=== PATIENT | female | born 1970 | race Caucasian/White ===

== ENCOUNTER 2023-11-28 16:11 | Outpatient (OUT) | payer OTHER, SELFPAY ==
--- NOTE | 2023-11-28 16:13 | MM_ITS ---
Patient Name: BERTHA BACH MR#: [id number] : 1970 Exam Date: 11/28/2023 Ordering Doctor: Non-Staff Physician RADIOLOGY REPORT PROCEDURE: MM TOMOSYNTHESIS SCREENING BI COMPARISON: MG MAMM SCREEN 3D CARLA CAD, 11/21/2021. MG MAMM SCREEN 3D CARLA CAD, 11/22/2022. INDICATIONS: screening Calculator Name NCI Breast Cancer Risk Assessment Tool 5 Year Breast Cancer Risk 1.50% Lifetime Breast Cancer Risk 10.20% Personal Breast Cancer No Personal Ovarian Cancer No Treatments None Family Cancers Brother with blood cancer at age 45; Mother with conner cell cancer at age ~45. LOCATION: [facility] BREAST COMPOSITION: Extremely dense, which lowers the sensitivity of mammography. FINDINGS: DIAGNOSTIC CATEGORY 1--NEGATIVE. NO CHANGE FROM COMPARISON ASSESSMENT. Scattered benign-appearing calcifications are present. Scattered benign-appearing lymph nodes are present. RIGHT BREAST: No significant suspicious finding. LEFT BREAST: No significant suspicious finding. RECOMMENDATIONS: ROUTINE MAMMOGRAM AND CLINICAL EVALUATION IN 12 MONTHS. PLEASE NOTE: A NORMAL MAMMOGRAM DOES NOT EXCLUDE THE POSSIBILITY OF BREAST CANCER. A CLINICALLY SUSPICIOUS PALPABLE LUMP SHOULD BE BIOPSIED. Dictated by: Clif Kim MD on 11/29/2023 at 08:02 Approved by: Clif Kim MD on 11/29/2023 at 08:05
== END 2023-11-28 16:12 | disposition home or self-care (01) ==
LOC: MAMMO 16:12
PROVIDERS: PCP Family Medicine
DX: Z12.31 Encounter for screening mammogram for malignant neoplasm of breast (principal); Z80.8 Family history of malignant neoplasm of other organs or systems
CPT/HCPCS: 77063; 77067

== ENCOUNTER 2024-03-26 11:13 | Outpatient (OUT) | payer OTHER, SELFPAY ==
--- OUTSIDE RECORDS SUMMARY | 2024-03-26 11:34 | XMS_ITS | CCD ---
Author Organization [facility] Care Team Providers Care Applications Engineering Manager Name Role Phone Unavailable Primary Care Provider Jose HER, DR SAUNRDA Garcia Primary Care Unavailable LUKE, DR KENNETH Lucas Consulting Unavailable HER, DR SAUNDRA Garcia Admitting Unavailable HER, DR SAUNDRA Garcia Attending Unavailable HER, DR SAUNDRA Garcia Consulting Unavailable [facility] NEELY Attending Unavailable [facility] NEELY Consulting Unavailable [facility] NEELY Admitting Unavailable HER, DR SAUNDRA Garcia Primary Care [facility] KEN[facility] Lucas Consulting Unavailable [facility] NEELY Admitting Unavailable [facility] DR NEELY Attending [facility], DR MARYURI Burris Consulting Unavailable HER, DR SAUNDRA Garcia Primary Care Unavailable [facility] DR NEELY Consulting Unavailable Blanka De La Torre Unavailable Saundra Her Unavailable Anabel Long Unavailable Nathalie Escobar Unavailable Medications Current Medications Medication Drug Class(es) Dates Sig (Normalized) Sig (Original) amoxicillin 875 mg / clavulanate 125 mg oral tablet (5 sources) Penicillin-class Antibacterial Start: 12-02-2022 take 1 tablet by mouth every twelve hours Amoxicillin-Pot Clavulanate 875-125 MG 1 tablet Orally every 12 hrs for 10 day(s) Aug, Active Multivitamin preparation (4 sources) Multivitamin Active pantoprazole (5 sources) Proton Pump Inhibitor Pantoprazole Sodium 40 mg TAKE 1 TABLET DAILY Not-Taking/PRN Protonix Active Completed/Discontinued Medications Medication Drug Class(es) Dates Sig (Normalized) Sig (Original) Estroven (4 sources) Estroven Not-Corwin ing/PRN Estroven Active fluticasone propionate 0.05 mg/actuat metered dose nasal spray (4 sources) Corticosteroid Start: 11-28-2022 take 1 spray(s) nasal route once daily as needed Fluticasone Propionate 50 MCG/ACT 1 spray in each nostril Nasally Once a day for 21 days Nov, Not-Taking/PRN Start: 11-28-2022 take 1 spray(s) nasa l route once daily Fluticasone Propionate 50 MCG/ACT 1 spray in each nostril Nasally Once a day for 21 days Nov, Active levothyroxine sodium 0.05 mg oral tablet (4 sources) l-Thyroxine Levothyroxine So dium 50 MCG TAKE 1 TABLET DAILY Not-Taking/PRN Synthroid Active methylPREDNISolone 4 mg oral tablet (4 sources) Corticosteroid Start: 11-28-2022 methylPREDNISolone 4 MG as directed Orally Once a day for 6 days Nov, Not-Taking/PRN predniSONE 20 mg oral tablet (4 sources) Start: 12-02-2022 take 1 tablet by mouth every twelve hours predniSONE 20 MG 1 tablet Orally 2 times a day for 5 day(s) Nov, Not-Taking/PRN Probiotic Pearls (4 sources) Probiotic Pearls Orally Not-Taking/PRN Probiotic Pearls Orally Active Problems Problem Classification Problem Date Documented Date Episodic/Chronic Esophageal disorders (1 source) Gastroesophageal reflux disease without esophagitis; Translations: [Gastro-esophageal reflux disease without esophagitis] Chronic Menopausal disorders (4 sources) Postmenopausal bleeding; Translations: [POSTMENOPAUSAL BLEEDING] Onset: 04-09-2022 Chronic Other endocrine disorders (4 sources) Polycystic ovaries; Translations: [Polycystic ovarian syndrome] Chronic Other screening for suspected conditions (not mental disorders or infectious disease) (4 sources) Encounter for screening mammogram for malignant neoplasm of breast; Translations: [ENC SCR MAMMO MALIG NEOPLASM BREAST] Onset: 11-22-2022 Episodic Other upper respiratory disease (4 sources) Sinusitis; Translations: [Allergic rhinitis, unspecified] Chronic Other upper respiratory disease (1 source) Allergic rhinitis, unspecified Chronic Other upper respiratory infections (2 sources) Acute sinusitis, unspecified; Translations: [Acute pansinusitis, unspecified] Episodic Thyroid disorders (5 sources) Hypothyroidism; Translations: [Hypothyroidism, unspecified] Chronic Results Test Name Value Interpretation Reference Range Facil ity MG MAMM SCREEN 3D CARLA CADon 11-22-2022 MG MAMM SCREEN 3D CARLA CAD Patient: BERTHA BACH Exam Date: 11/22/2022 : 1970 Gender:F Ordering : DR SAUNDRA HER M.D. Admission #: [id number] Family : Order #: [id number] CLICK HERE TO VIEW EXAM RADIOLOGY REPORT PROCEDURE: MAMMOGRAM SCREENING 3D BILATERAL CAD COMPARISON: MG MAMM SCREEN CARLA W CAD, 11/17/2020. MG MAMM SCREEN CARLA W CAD, 11/12/2019. MG MAMM SCREEN CARLA W CAD, 03/25/2018. MG MAMM SCREEN 3D CARLA CAD, 11/21/2021. INDICATIONS: Screening for malignant neoplasm of breast Calculator Name NCI Breast Cancer Risk Assessment Tool 5 Year Breast Cancer Risk Not Reported. Lifetime Breast Cancer Risk Not Reported. Personal Breast Cancer No Personal Ovarian Cancer No Treatments None Family Cancers None LOCATION: [facility] BREAST COMPOSITION: Extremely dense, which lowers the sensitivity of mammography. FINDINGS: DIAGNOSTIC CATEGORY 1--NEGATIVE. RIGHT BREAST: No significant suspicious finding. No significant change has occurred. LEFT BREAST: No significant suspicious finding. No significant change has occurred. RECOMMENDATIONS: ROUTINE MAMMOGRAM AND CLINICAL EVALUATION IN 12 MONTHS. PLEASE NOTE: A NORMAL MAMMOGRAM DOES NOT EXCLUDE THE POSSIBILITY OF BREAST CANCER. A CLINICALLY SUSPICIOUS PALPABLE LUMP SHOULD BE BIOPSIED. Dictated by: Kenneth Marin M.D. on 11/23/2022 at 09:34 Approved by: Kenneth Marin M.D. on 11/23/2022 at 10:21 Normal [facility] CT ABD/PELV WO W CONon 04-09 CT ABD/PELV WO W CON EXAMINATION: CT ABD/PELV WO W CON, 04/09/2022 7:00 AM EDT HISTORY: Postmenopausal bleeding comment uterine mass, thickened endometrium COMPARISON: Ultrasound 03/21/2022 TECHNIQUE: CT scan of the abdomen and pelvis was performed without and with IV contrast. CT dose reduction technique was used, including Automated Exposure Control. FINDINGS: LUNG BASES: No visible pulmonary or pleural disease. LIVER: Innumerable hypodensities, simple cysts are favored BILIARY: Extensive costal cholelithiasis without CT evidence of acute cholecystitis PANCREAS: No lesion, fluid collection, ductal dilatation, or atrophy. SPLEEN: Scattered hypodensities nonspecific ADRENALS: Normal KIDNEYS: Dilated left renal pelvis, possibly representing parapelvic cysts. No focal obstruction observed BOWEL/MESENTERY: Minimal colonic diverticulosis. Nonobstructive bowel gas pattern. Normal appendix AORTA/VASCULAR: No aneurysm or dissection. RETROPERITONEUM: No mass or adenopathy. LYMPH NODES: No adenopathy. URINARY BLADDER: No visible focal wall thickening, lesion, or calculus. PELVIC ORGANS: Prominent appearance of the endometrium. Prominent cervix. Areas of fluid density, nabothian cysts favored. Focal area of hypodensity measuring 2.3 x 1.9 cm and the left cervix, axial image 119. r adnexal cysts, the largest measuring 2.6 cm on the left ABDOMINAL WALL: No mass or hernia. BONES: No bony lesion or fracture. OTHER: Negative. IMPRESSION: 2.3 cm left cervical hypodense mass. Direct visualization is recommended to exclude malignancy Prominent endometrium for a postmenopausal patient 2.5 cm left adnexal cyst Dilated left renal pelvis, pelviectasis versus parapelvic cysts Electronically authenticated by: MARYURI BAH Date: 2022-04-09 09:[address] [facility] US PELVIS AND TRANSVAGon US PELVIS AND TRANSVAG EXAMINATION: US PELVIS AND TRANSVAG HISTORY: Postmenopausal bleeding COMPARISON: No relevant comparison available. TECHNIQUE: Transabdominal and transvaginal sonographic examination. FINDINGS: UTERUS: Hypoechoic slightly heterogeneous mass versus hemorrhagic cyst adjacent to or possibly within the left lateral wall of the cervix, 2.6 x 2.3 x 1.6 cm. Several nabothian cysts within engle of cervix, largest is 2.1 cm. Normal size and appearance of uterine body. Uterus size: 9.2 x 5.4 x 5.1 cm ENDOMETRIUM: 3 mm cyst within endometrium, otherwise homogeneous appearance. Endometrial thickness: 11 mm RIGHT OVARY: Contains several cysts versus follicles, largest is 2.3 cm. Duplex Doppler demonstrates normal waveform and flow; resistive index 0.5. Ovary size: 4.4 x 2.6 x 2.6 cm LEFT OVARY: Contains several cysts versus follicles, largest is 2.6 cm. Duplex Doppler demonstrates normal waveform and flow; resistive index 0.6. Ovary size: 4.0 x 3.7 x 2.7 cm CUL-DE-SAC: Unremarkable. No significant free fluid. BLADDER: Unremarkable. OTHER: None. IMPRESSION: 1. Nonspecific hypoechoic 2.6 cm mass which appears to lie adjacent to the left side of the cervix, uncertain etiology. Consider CT imaging of the abdomen and pelvis with IV and oral contrast for further evaluation. 2. Multiple nabothian cysts within the engle of the cervix, which could also contribute to patient's symptoms. 3. Thickened endometrium for a postmenopausal patient. No appreciable mass or significant polyp. 4. Multiple bilateral ovarian cysts; not overtly suspicious. Consider follow-up imaging in 6 weeks. Electronically authenticated by: KENNETH MARIN Date: 2022-03-21 16:[address] [facility] Otheron 08-22-1999 CONVERTED ELECTRONIC SIGNATURE SAULO CARRERO ONLINE COMMUNICATIONS MANAGER (Electronic signature on file) Final Signed Out: 08/22/1999 12:16 [facility] CONVERTED FINAL DIAGNOSIS SPECIMEN ADEQUACY SATISFACTORY FOR EVALUATION GENERAL CATEGORIZATION BENIGN CELLULAR CHANGES DESCRIPTIVE DIAGNOSIS MARKED ACUTE INFLAMMATION. HORMONAL EVALUATION HORMONAL PATTERN COMPATIBLE WITH AGE AND HISTORY [facility] CONVERTED ORDERING PROVIDER Ordering Provider: CHEY CARRERA [facility] CONVERTED PAP DISCLAIMER The Pap test serves as a screening tool for early detection of cervical cancer. The Pap test does not represent a final diagnostic test for cervical cancer. Furthermore, the Pap test was not designed to screen for other malignancies (endometrial, ovarian cancer, etc....). False negatives and false positives have occurred. If clinically indicated, further patient evaluation is recommended. [facility] Vital Signs Date Time Vital Sign Value Performing Clinician Facility 09-24-2023 11:00-0500 Body height 168.91 cm Nathalie Escobar Other [facility] Other 09-24-2023 11:00-0500 Body mass index (BMI) [Ratio] 27.47 kg/m2 Nathalie Escobar Other [facility] Other 09-24-2023 11:00-0500 Body temperature 98 [degF] Nathalie Escobar Other [facility] Other 09-24-2023 11:00-0500 Body weight 78.38 kg Nathalie Escobar Other [facility] Other 09-24-2023 11:00-0500 Diastolic blood pressure 62 mm[Hg] Nathalie Schuler [facility] Other 09-24-2023 11:00-0500 Respiratory rate 18 /min Nathalie Escobar Other [facility] Other 09-24-2023 11:00-0500 SaO2% (BldA) [Mass fraction] 98 % Nathalie Escobar Other [facility] Other 09-24-2023 11:00-0500 Systolic blood pressure 102 mm[Hg] Nathalie Escobar Other [facility] Other 12-02-2022 11:25-0500 Body height 168.91 cm Anabel Winstonmond Other [facility] Other 12-02-2022 11:25-0500 Body mass index (BMI) [Ratio] 27.34 kg/m2 Anabel Long Other [facility] Other 12-02-2022 11:25-0500 Body temperature 98.1 [degF] Anabel Long Other [facility] Other 12-02-2022 11:25-0500 Body weight 78.02 kg Anabel Winstonmond Other [facility] Other 12-02-2022 11:25-0500 Respiratory rate 18 /min Anabel Winstonmond Other [facility] Other 12-02-2022 11:25-0500 SaO2% (BldA) [Mass fraction] 97 % Anabel Mercedes Other [facility] Other 11-28-2022 11:55-0500 Body height 168.91 cm Blanka De La Torre Other [facility] Other 11-28-2022 11:55-0500 Body mass index (BMI) [Ratio] 27.34 kg/m2 Blanka De La Torre Other [facility] Other 11-28-2022 11:55-0500 Body temperature 97.6 [degF] Blanka De La Torre Other [facility] Other 11-28-2022 11:55-0500 Body weight 78.02 kg Blanka De La Torre Other [facility] Other 11-28-2022 11:55-0500 Respiratory rate 18 /min Blanka De La Torre Other [facility] Other 11-28-2022 11:55-0500 SaO2% (BldA) [Mass fraction] 95 % Blanka De La Torre Other [facility] Other Encounters Encounter Date Encounter Type Care Provider Facility Start: 09-24-2023 End: 09-24-2023 ambulatory Nathalie Escobar Other [facility] Other Start: 09-24-2023 Office outpatient visit 15 minutes Nathalie Escobar [facility] Start: 12-02-2022 End: 12-02-2022 ambulatory Anabel Long Other [facility] Other Start: 12-02-2022 Office outpatient visit 15 minutes Anabel Long [facility] Start: 11-29-2022 End: 11-29-2022 ambulatory Saudnra Her Other [facility] Other Start: 11-29-2022 Telephone encounter Saundra Her [facility] Start: 11-28-2022 End: 11-28-2022 ambulatory Blanka De La Torre Other [facility] Other Start: 11-28-2022 Office outpatient ne w 30 minutes Blanka De La Torre [facility] Start: 11-22-2022 End: 11-23-[address] SAUNDRA HER Facility:[facility] Start: 04-09-2022 End: 04-10-[address] DOCTOR HAWKINS Facility:[facility] Start: 03-21-2022 End: 03-22-[address] DOCTOR HAWKINS Facility:[facility] Start: 08-14-1999 End: 08-14-1999 Patient encounter procedure Conversion Sailaja Shaikh [facility] Start: 08-14-1999 Results Only Conversion Sailaja Shaikh [facility] Procedures Date Procedure Procedure Detail Performing Clinician Start: 08-14-1999 CONVERTED CYTOLOGY WIRELESS SALES CONSULTANT Conversion Sailaja Shaikh Payers Date Payer Category Payer Unknown [id number] 1970 Unknown [id number] 1970 Unknown [id number] 1961 Unknown [id number] Social History Date Type Detail Facility Tobacco smoking status NHIS Unknown if ev er smoked [facility] Sex Assigned At Not on file [facility] Sex Assigned At Sex Assigned At Bir th [facility] Other Evaluation note 09-24-2023 Note Date & Type Note Facility 09-24-2023 Evaluation note Encounter Date Diagnosis Assessment Notes Aug, Acute non-recurrent pansinusitis (ICD-10 - J01.40) Will tx tody for bacterial sinusitis based on physical exam and duration of symptoms. Take antibiotic as prescribed, complete entire course of therapy even if symptoms resolve. Take OTC cold/sinus meds as directed on packaging. Supportive care as directed, push fluids and rest, Tylenol/Motrin as directed for aches/fever, warm moist compress over sinuses several times a day, cool mist humidifier, nasal saline spray as directed. Symptoms should improve in the next 3 days, if symptoms persist follow up with PCP. Immediate eval for warning s/sx as discussed. Patient verbalizes understanding and is agreeable to treatment plan. [facility] Other Evaluation note 12-02-2022 Note Date & Type Note Facility 12-02-2022 Evaluation note Encounter Date Diagnosis Assessment Notes Nov, Acute sinusitis, recurrence not specified, unspecified location (ICD-10 - J01.90) Sinusitis home care material was printed Drink plenty fluids, get plenty of rest. Take the amoxicillin with clavulanate and prednisone as prescribed until gone. Stop your Medrol Dosepak. Continue to use the fluticasone nasal spray until your symptoms improved. Follow-up with your family physician if no improvement in 2 to 3 days. [facility] Other Evaluation note 11-28-2022 Note Date & Type Note Facility 11-28-2022 Evaluation note Encounter Date Diagnosis Assessment Notes Nov, Allergic sinusitis (ICD-10 - J30.9) Take medication as directed. Use saline nasal spray may help with symptom relief. OTC medications such as Zyrtec, Tammy can help with symptoms during the peak of allergy season. Follow up with primary care provider if symptoms persist as a therapy plan may need to be made. [facility] Other Evaluation note Note Date & Type Note Facility Evaluation note No Information [employer] Other History general Narrative - Reported Note Date & Type Note Facility History general Narrative - Reported Type Medical History Pike's esophagus Medical History Hypothyroidism Medical History Tanesha-menopausal Medical History Polycystic ovarian syndrome Medical History Kidney stones Surgical History tonsillectomy Hospitalization History see above surgical histo ry [facility] Other History general Narrative - Reported Note Date & Type Note Facility History general Narrative - Reported Type Medical History Pike's esophagus Medical History Hypothyroidism Medical History Tanesha-menopausal Medical History Polycystic ovarian syndrome Medical History Kidney stones Surgical History tonsillectomy Surgical History D&C 04/2023 Hospitalization History see above surgical histo ry [facility] Other Summary Purpose Family History No Family History Records Found Advance Directives No Advanced Directives Records Found Additional Source Comments Source Comments (unrecognize d section and content) In the event this informatio n is protected by the Federal Confidentiality of Alcohol and Drug Abuse Patient Records regulations: The Federal rules restrict any use of the information to criminally investigate or prosecute any alcohol or drug abuse patient.[facility] INFORMATION SOURCE (unrecogn ized section and content) DATE CREATED AUTHOR 11/27/2022 [facility] REASON FOR VISIT (unrecogniz ed section and content) SINUS CONGESTION, FACIAL ROMY N/PRESSURENo InformationNASAL CONGESTION NOT BETTER FROM SATURDAY - GREEN AND YELLOWSINUS INFECTION ON LEFT SIDE OF HEAD FOR RECORDS PERTAINING TO PATIENTS WHO ARE OR HAVE BEEN ENROLLED IN A CHEMICAL DEPENDENCY/SUBSTANCEABUSE PROGRAM, SOME INFORMATION MAY BE OMITTED. This clinical summary was aggregated from multiple sources. Caution should be exercised in using it in the provision of clinical care. This summary normalizes information from multiple sources, and as a consequence, information in this document may materially change the coding, format and clinical context of patient data. In addition, data may be omitted in some cases. CLINICAL DECISIONS SHOULD BE BASED ON THE PRIMARY CLINICAL RECORDS. [employer] provides no warranty or guarantee of the accuracy or completeness of information in this document.
[2024-03-26 13:21] LABS: Thyroid Stimulating Hormone 4.328 uIU/mL (0.358-3.740)
== END 2024-03-26 11:14 | disposition home or self-care (01) ==
LOC: LAB 11:15
PROVIDERS: PCP Family Medicine; Visit Provider Family Medicine
DX: E03.9 Hypothyroidism, unspecified (principal)
CPT/HCPCS: 36415; 84439; 84443

== ENCOUNTER 2024-04-22 09:54 | Outpatient (OUT) | payer OTHER, SELFPAY ==
--- NOTE | 2024-04-22 09:57 | US_ITS ---
The [address] [address] Patient Name: BERTHA BACH MRN: [id number] date: 1970 Sex: F Assigned Patient Location: US Current Patient Location: US Accession/Order Number: [id number] Exam Date: 04/22/2024 10:00 Report Date: 04/22/2024 10:52 At the request of: NON-STAFF PHYSICIAN Procedure: US pelvis transvaginal EXAMINATION: US pelvis transvaginal HISTORY: Fibroids D21.9 COMPARISON: No relevant comparison available. FINDINGS: Transvaginal images the uterus is normal in size, contour and myometrial echotexture measuring 6.8 x 4.5 x 4.4 cm, anteverted. Identified anterior left cervix is a 2.2 x 1.9 x 1.1 cm area of hypoechogenicity without definitive color flow, nonspecific. Area of 1.6 cm anechoic echogenicity in the cervix likely nabothian cysts. The endometrium measures 9 mm The right ovary measures 3.5 x 2.1 x 1.4 cm. Normal color and Doppler flow. 3 mm echogenic focus likely a nonspecific calcification Left ovary is normal measuring 3.5 x 2.4 x 1.5 cm. Normal color and Doppler flow No ascites US/US pelvis transvaginal IMPRESSION: 2.2 cm hyperechogenic avascular lesion in the anterior cervix, nonspecific Endometrium measures 9 mm, normal for premenopausal, thickened for postmenopausal patient Electronically authenticated by: MARYURI BAH Date: 04/22/2024 10:52
--- OUTSIDE RECORDS SUMMARY | 2024-04-22 09:58 | XMS_ITS | CCD ---
Author Organization [facility] Care Team Providers Care Music Pastor Name Role Phone Unavailable Primary Care Provider Jose HER, DR SAUNDRA Garcia Primary Care Unavailable LUKE, DR KENNETH Lucas Consulting Unavailable HER, DR SAUNDRA Garcia Admitting Unavailable HER, DR SAUNDRA Garcia Attending Unavailable ARDEN, DR SAUNDRA Garcia Consulting Un[place] [facility] [place] [facility] [place] Consulting Un[place] [facility] [place] NE[place] Admitting Unavailable HER, DR SAUNDRA Garcia Primary Care Unavailable DORAJER, DR KENNETH Lucas Consulting Un[place] [facility] [place] Admitting Un[place] [facility] [place] NEELY Attending [facility], DR MARYURI Burris Consulting Unavailable HER, DR SAUNDRA Garcia Primary Care Unavailable [facility] [place] NE[place] Consulting Unavailable Blanka De La Torre Unavailable Saundra Her Unavailable Anabel Long Unavailable Nathalie Escobar Unavailable LOVE RASCON Attending Unavailable SALLY BRIZUELA Referring Unavailable SAUNDRA HER Primary Care Unavailable Medications Current Medications Medication Drug Class(es) Dates Sig (Normalized) Sig (Original) amoxicillin 875 mg / clavulanate 125 mg oral tablet (5 sources) Penicillin-class Antibacterial Start: 12-02-2022 take 1 tablet by mouth every twelve hours Amoxicillin-Pot Clavulanate 875-125 MG 1 tablet Orally every 12 hrs for 10 day(s) Aug, Active Ascorbic Acid (1 source) Vitamin C Start: 03-24-2024 take 1 g by mouth every six hours Ascorbic Acid (Vitamin C) Active 1 GM PO Every 6 hours March 24, 2024 12:00am cholecalciferol 0.125 mg oral capsule (1 source) Vitamin D Start: 03-24-2024 take 125 ug by mouth once daily Cholecalciferol (Vitamin D3) Active 125 MCG PO Daily March 24, 2024 12:00am Lactobacillus Combo No.13 (Probiotic Pearls Complete) 1 billion cell capsule,delayed release(DR/EC) (1 source) Start: 03-24-2024 Lactobacillus Combo No.13 (Probiotic Pearls Complete) 1 billion cell capsule,delayed release(DR/EC) Active 1 CAP PO Daily March 24, 2024 12:00am latanoprost 0.05 mg/ml ophthalmic solution (1 source) Prostaglandin Analog Start: 03-24-2024 take 1 drop(s) into the eye(s) once daily Latanoprost Active 1 DROPS EYE-BOTH Daily March 24, 2024 12:00am levothyroxine sodium 0.05 mg oral tablet (5 sources) l-Thyroxine Start: 03-24-2024 take 1 tablet by mouth once daily Levothyroxine Active 50 MCG PO Daily March 24, 2024 12:00am FreeTextSig: TAKE 1 TABLET DAILY; Note: Source Status: Not-Taking\PRN; Refills: 3; Qty: 90 Tablet; Provider: Arden Arguello ( ) Levothyroxine So dium 50 MCG TAKE 1 TABLET DAILY Not-Taking/PRN Synthroid Active Multivitamin preparation (5 sources) Start: 03-24-2024 take 1 tablet by mouth once daily Multivitamin Active 1 TAB PO Daily March 24, 2024 12:00am Multivitamin Act archana Mv,Ca,Smj-Oa-Ceiwvc Comp #223 (Estroven Mood And Memory) 400 mcg tablet (1 source) Start: 03-24-2024 take 1 tablet by mouth once Mv,Ca,Cpr-It-Qnaxwn Comp #223 (Estroven Mood And Memory) 400 mcg tablet Active TAB PO March 24, 2024 12:00am pantoprazole 40 mg delayed release oral tablet (6 sources) Proton Pump Inhibitor Start: 03-24-2024 take 1 tablet by mouth once daily Pantoprazole (Protonix) 40 mg tablet,delayed release (DR/EC) Active 40 MG PO Daily March 24, 2024 12:00am Pantoprazole Sod ium 40 mg TAKE 1 TABLET DAILY Not-Taking/PRN [...] a day for 21 days Nov, Active methylPREDNISolone 4 mg oral tablet (4 [...] reflux disease without esophagitis] Chronic Menopausal disorders (5 sources) Postmenopausal bleeding; Translations: [POSTMENOPAUSAL BLEEDING] Onset: 04-09-2022 Chronic Other and unspecified benign neoplasm (1 source) Benign neoplasm of connective and other soft tissue, unspecified; Translations: [Benign neoplasm of connective and other soft tissue, unspecified] Onset: 04-10-2024 Episodic Other endocrine disorders (4 sources) Polycystic ovaries; Translations: [Polycystic ovarian syndrome] Chronic Other screening for suspected conditions (not mental disorders or infectious disease) (7 sources) Encounter for screening mammogram for malignant neoplasm of breast; Translations: [Patient encounter status] Onset: 11-22-2022 Episodic Other upper respiratory disease (4 sources) Sinusitis; Translations: [Allergic rhinitis, unspecified] Chronic Other upper respiratory disease (1 source) Allergic rhinitis, unspecified Chronic Other upper respiratory infections (2 sources) Acute sinusitis, unspecified; Translations: [Acute pansinusitis, unspecified] Episodic Thyroid disorders (7 sources) Hypothyroidism; Translations: [Hypothyroidism, unspecified] 03-24-2024 Chronic Unclassified (1 source) Gynecologic Exam Onset: 04-10-2024 Results Test Name Value Interpretation Reference Range Facil ity MG MAMM SCREEN 3D CARLA CADon 11-22-2022 MG MAMM SCREEN 3D CARLA CAD Patient: BERTHA BACH Exam Date: 11/22/2022 : 1970 Gender:F Ordering : DR SAUNDRA HER M.D. Admission #: [id number] Family : Order #: [id number] CLICK HERE TO VIEW EXAM RADIOLOGY REPORT [...] No Treatments None Family Cancers None LOCATION: [facility] BREAST COMPOSITION: Extremely dense, which lowers the [...] M.D. 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 HORMONAL EVALUATION HORMONAL PATTERN COMPATIBLE WITH AGE AND HISTORY [facility] CONVERTED ORDERING PROVIDER Ordering Provider: CHEY CARRERA [facility] CONVERTED PAP DISCLAIMER The Pap test serves as a screening tool for early detection of cervical cancer. The Pap test does not represent a final diagnostic test for cervical cancer. Furthermore, the Pap test was not designed to screen for other malignancies (endometrial, ovarian cancer, etc....). False negatives and false positives have occurred. If clinically indicated, further patient evaluation is recommended. [facility] Vital Signs Date Time Vital Sign Value Performing Clinician Facility 03-24-2024 09:35-0400 Body height 168.[address] [facility] 03-24-2024 09:35-0400 Body mass index (BMI) [Ratio] 27.6 kg/m2 [facility] 03-24-2024 09:35-0400 Body weight 78.[address] [facility] 03-24-2024 09:35-0400 Diastolic blood pressure 72 mm[Hg] [facility] 03-24-2024 09:35-0400 Heart rate 76 /min [facility] 03-24-2024 09:35-0400 Systolic blood pressure 115 mm[Hg] [facility] 09-24-2023 11:00-0500 Body height 168.91 cm Nathalie Escobar Other [facility] Other 09-24-2023 11:00-0500 Body mass index (BMI) [Ratio] 27.47 kg/m2 Nathalie Escobar Other [facility] Other 09-24-2023 11:00-0500 Body temperature 98 [degF] Nathalie Escobar Other [facility] Other 09-24-2023 11:00-0500 Body weight 78.38 kg Nathalie Escobar Other [facility] Other 09-24-2023 11:00-0500 Diastolic blood pressure 62 mm[Hg] Nathalie Escobar Other [facility] Other 09-24-2023 11:00-0500 Respiratory rate 18 /min Nathalie Escobar Other [facility] Other 09-24-2023 11:00-0500 SaO2% (BldA) [Mass fraction] 98 % Nathalie Escobar Other [facility] Other 09-24-2023 11:00-0500 Systolic blood pressure 102 mm[Hg] Nathalie Escobar Other [facility] Other 12-02-2022 11:25-0500 Body height 168.91 cm Anabel Long Other [facility] Other 12-02-2022 11:25-0500 Body mass index (BMI) [Ratio] 27.34 kg/m2 Anabel Long Other [facility] Other 12-02-2022 11:25-0500 Body temperature 98.1 [degF] Anabel Long Other [facility] Other 12-02-2022 11:25-0500 Body weight 78.02 kg Anabel Long Other [facility] Other 12-02-2022 11:25-0500 Respiratory rate 18 /min Anabel Long Other [facility] Other 12-02-2022 11:25-0500 SaO2% (BldA) [Mass fraction] 97 % Anabel Long Other [facility] Other 11-28-2022 11:55-0500 Body height 168.91 cm Blanka Harperault Other [facility] Other 11-28-2022 11:55-0500 Body mass index (BMI) [Ratio] 27.34 kg/m2 Blanka Britt Other [facility] Other 11-28-2022 11:55-0500 Body temperature 97.6 [degF] Blanka Britt Other [facility] Other 11-28-2022 11:55-0500 Body weight 78.02 kg Blanka Britt Other [facility] Other 11-28-2022 11:55-0500 Respiratory rate 18 /min Blanka Britt Other [facility] Other 11-28-2022 11:55-0500 SaO2% (BldA) [Mass fraction] 95 % Blanka De La Torre Other [facility] Other Encounters Encounter Date Encounter Type Care Provider Facility Start: 04-10-2024 End: 04-10-2024 ambulatory [facility] Start: 04-10-2024 Encounter for gynecological examination (general) (routine) without abnormal findings [facility] Start: 03-24-2024 Patient encounter status [facility] Start: 03-24-2024 End: 03-24-2024 ambulatory [facility] Work Phone: Start: 03-24-2024 End: 03-24-2024 Encounter for general adult medical examination without abnormal findings [facility] Start: 03-24-2024 End: 03-24-2024 Patient encounter procedure [facility] Physician [facility] Work Phone: Start: 09-24-2023 End: 09-24-2023 ambulatory Nathalie Escobar Other [facility] Other Start: 09-24-2023 Office outpatient vi sit 15 minutes Nathalie Escobar [facility] Start: 12-02-2022 End: 12-02-2022 ambulatory Anabeldrea Long Other [facility] Other Start: 12-02-2022 Office outpatient vi sit 15 minutes Anabel Mercedes [facility] Start: 11-29-2022 End: 11-29-2022 ambulatory Saundra Her Other [facility] Other Start: 11-29-2022 Telephone encounter Saundra Her [facility] Start: 11-28-2022 End: 11-28-2022 ambulatory Blanka De La Torre Other [facility] Other Start: 11-28-2022 Office outpatient ne w 30 minutes Blanka De La Torre [facility] Start: 11-22-2022 End: 11-23-[address] SAUNDRA HER Facility:[facility] Start: 04-09-2022 End: 04-10-[address] DOCTOR HAWKINS Facility:[facility] Start: 03-21-2022 End: 03-22-[address] DOCTOR HAWKINS Facility:[facility] Start: 08-14-1999 End: 08-14-1999 Patient encounter procedure Conversion Sailaja Shaikh [facility] Start: 08-14-1999 Results Only Conversion Sailaja Shaikh [facility] Procedures Date Procedure Procedure Detail Performing Clinician Start: 08-14-1999 CONVERTED CYTOLOGY FRAUD ANALYST Conversion Sailaja Plan of Treatment Date Care Activity Detail Author [facility] Payers Date Payer Category Payer Unknown [id number] [id number] 1970 Unknown [id number] 1970 Unknown [id number] 1970 Unknown [id number] 1961 Unknown [id number] Social History Date Type Detail Facility Tobacco smoking status NVIS Unknown if ever smoked [facility] Sex Assigned At Not on file [facility] Sex Assigned At Sex Assigned At [facility] th [facility] Other Start: 09-24-2023 Tobacco smoking status NHIS Never smoked tobacco (finding) [facility] Start: 1970 Sex Assigned At Female F [facility] Evaluation note 09-24-2023 Note Date & Type [...] understanding and is agreeable to treatment plan. [facility] Other Evaluation note 12-02-2022 Note Date & [...] no improvement in 2 to 3 days. [facility] Other Evaluation note 11-28-2022 Note Date & [...] therapy plan may need to be made. [facility] Other Evaluation note Note Date & Type Note Facility Evaluation note No Information [facility] Other Evaluation note Note Date & Type Note Facility Evaluation note Diagnosis Onset Date Hypothyroid acute Screening for colon cancer a cute Wellness examination [facility] Work Phone: History general Narrative - Reported Note Date & Type Note Facility History general Narrative - Reported Type Medical History Pike's esophagus Medical History Hypothyroidism Medical History Tanesha-menopausal Medical History Polycystic ovarian syndrome Medical History Kidney stones Surgical History tonsillectomy Hospitalization History see above surgical histo ry [facility] Other History general Narrative - Reported Note Date & Type Note Facility History general Narrative - Reported Type Medical History Pike's esophagus Medical History Hypothyroidism Medical History Tanesha-menopausal Medical History Polycystic ovarian syndrome Medical History Kidney stones Surgical History tonsillectomy Surgical History D&C 04/2023 Hospitalization History see above surgical histo ry [facility] Other Hospital Discharge instructions Note Date & Type Note Facility Hospital Discharge instructions Ambulatory OrdersAMB Cologuard Time Frame: 03/24/24, Location: Determined By Patient [facility] Work Phone: Summary Purpose Family History No Family History Records Found Relationship Condition Age at Onset Recorded Date/T lidia Not Specified Unknown Advance Directives No Advanced Directives Records Found Advance Directive Response Recorded Date/ Time Advance Directives No March 24 9:24am Chief Complaint and Reason for Visit Chief Complaint Wellness Reason for Visit Hypothyroid Screening for colon cancer Wellness examination Additional Source Comments Source Comments (unrecognize d section and content) In the event this informatio n is protected by the Federal Confidentiality of Alcohol and Drug Abuse Patient Records regulations: The Federal rules restrict any use of the information to criminally investigate or prosecute any alcohol or drug abuse patient.[facility] INFORMATION SOURCE (unrecogn ized section and content) DATE CREATED AUTHOR 11/27/2022 [facility] DATE CREATED AUTHOR AUTHOR'S ORGANIZ ATION 04/16/2024 [facility] REASON FOR VISIT (unrecogniz ed section and content) SINUS CONGESTION, FACIAL ROMY N/PRESSURENo InformationNASAL CONGESTION NOT BETTER FROM SATURDAY - GREEN AND YELLOWSINUS INFECTION ON LEFT SIDE OF HEAD Care Teams (unrecognized sec tion and content) Team Status: Active Member Role Status Dates Sally Brizuela MD Primary Care Provider Active Team Status: Inactive Member Role Status Dates Sally Brizuela MD Primary Care Provider Active Start: March 24, 2024 End: March 24, 2024 Saundra Her MD Attending Provider Active St art: March 24, 2024 End: March 24, 2024 Goals (unrecognized section and content) Goals may be documented in a n alternate section FOR RECORDS PERTAINING TO PATIENTS WHO ARE [...] BE BASED ON THE PRIMARY CLINICAL RECORDS. [facility]. provides no warranty or guarantee of the accuracy or completeness of information in this document.
== END 2024-04-22 09:55 | disposition home or self-care (01) ==
LOC: US 09:54
PROVIDERS: PCP Family Medicine
DX: D21.9 Benign neoplasm of connective and other soft tissue, unspecified (principal); N95.0 Postmenopausal bleeding
CPT/HCPCS: 76830

== ENCOUNTER 2024-07-02 15:45 | Outpatient (OUT) | payer OTHER, SELFPAY ==
--- OUTSIDE RECORDS SUMMARY | 2024-07-02 16:06 | XMS_ITS | CCD ---
Author Organization [facility] Care Team Providers Care Social Media Coordinator Name Role Phone Unavailable Primary Care Provider Jose HER, DR SAUNDRA Garcia Primary Care Unavailable LUKE, DR KENNETH Lucas Consulting Unavailable HER, DR SAUNDRA Garcia Admitting Unavailable HER, DR SAUNDRA Garcia Attending Unavailable HER, DR SAUNDRA Garcia Consulting Un[facility] DR NEELY Attending Unavailable [facility], DR NEELY Consulting Unavailable [facility], DR NEELY Admitting Unavailable HER, DR SAUNDRA Garcia Primary Care Unavailable DORAJER, DR KENNETH Lucas Consulting Unavailable [facility], DR NEELY Admitting Unavailable [facility], DR NEELY Attending Unavailable GLEN FERRIS, DR MARYURI Burris Consulting Unavailable HER, DR SAUNDRA Garcia Primary Care Unavailable [facility], DR NEELY Consulting Unavailable Blanka De La Torre Unavailable Saundra Her Unavailable Anabel Long Unavailable Nathalie Escobar Unavailable AMERICA RASCON Attending Unavailable ASLLY BRIZUELA Referring Unavailable SAUNDRA HER Primary Care Unavailable AMERICA RASCON Attending Unavailable SAUNDRA HER Referring Unavailable SAUNDRA HER Primary Care Unavailable AMERICA RASCON Referring Unavailable SAUNDRA HER Primary Care Unavailable SAUNDRA HER Referring Unavailable SAUNDRA HER Primary Care Unavailable [...] Not-Taking\PRN; Refills: 3; Qty: 90 Tablet; Provider: Rebecca Arguello ( ) Levothyroxine So dium 50 MCG TAKE 1 TABLET DAILY Not-Taking/PRN Synthroid Active Multivitamin preparation (5 sources) Start: 03-24-2024 take 1 tablet by mouth once daily Multivitamin Active 1 TAB PO Daily March 24, 2024 12:00am Multivitamin Act archana Mv,Ca,Mfo-Hd-Mpazip Comp #223 ([facility]) 400 mcg tablet (1 source) Start: 03-24-2024 take 1 tablet by mouth once Mv,Ca,Qqi-Tf-Yrgefi Comp #223 ([facility] [employer]) 400 [...] reflux disease without esophagitis] Chronic Menopausal disorders (6 sources) Postmenopausal bleeding; Translations: [POSTMENOPAUSAL BLEEDING] Onset: [...] sinusitis, unspecified; Translations: [Acute pansinusitis, unspecified] Episodic Residual codes; unclassified (1 source) Pain, unspecified; Translations: [Pain, unspecified] Onset: 05-01-2024 Episodic Thyroid disorders (7 sources) Hypothyroidism; Translations: [Hypothyroidism, unspecified] 03-24-2024 Chronic Unclassified (1 source) Procedure Onset: 04-27-2024 Unclassified (1 source) Gynecologic Exam Onset: 04-10-2024 Results Test Name Value Interpretation Reference Range Facil ity Surgical Pathologyon 024 Surgical Pathology [facility] Comment on above: Result Comment: [facility] [employer] [facility] [address] [place] [address] Surgical Pathology Consultation Patient Name:BERTHA BACH:1970 (Age: 54)Gender:FTaken:04/27/2024eported:04/30/2024hysician(s):America Rascon N.PMarc ([phone])Copy To: Rec. #:[id number]: #[id number] Final Pathologic Diagnosis Endometrial biopsy: Strips and fragments of benign endometrial lining and blood No intact endometrial glands and stroma Report Electronically Signed Out nsk/04/30/2024Estefani Galarza MD Interpretation [place] [address], License number: [id number]. Clinical History Postmenopausal bleeding N95.0. PMB, endo thickened on ultrasound. Gross Description Received in formalin labeled MIKALA, endometrial BX are multiple horton feathery bits of soft tissue, embedded in horton cloudy mucoid debris tinged with blood, aggregating to 2.0 x 0.5 x 0.1 cm. Filtered and submitted in a single cassette. (1, ns, [id number], m7) MG mjg/04/27/2024EAK Specimen(s) Received Endometrial biopsy Fee Codes(s): 1; 42691 MG MAMM SCREEN 3D CARLA CADon 11-22-2022 MG MAMM SCREEN 3D CARLA CAD Patient: BERTHA BACH Exam Date: 11/22/2022 : 1970 Gender:F Ordering : DR SAUNDRA HER M.D. Admission #: [id number] Family : Order #: [id number] CLICK HERE TO VIEW EXAM RADIOLOGY REPORT [...] No Treatments None Family Cancers None LOCATION: [facility] BREAST COMPOSITION: Extremely dense, which lowers [...] M.D. on 11/23/2022 at 10:21 Normal [facility] CT ABD/PELV WO W CONon 04-09 CT [...] by: MARYURI BAH Date: 2022-04-09 09:17 Normal [facility] US PELVIS AND TRANSVAGon US PELVIS [...] by: KENNETH MARIN Date: 2022-03-21 16:45 Normal [facility] Otheron 08-22-1999 CONVERTED ELECTRONIC SIGNATURE SAULO CARRERO SUSTAINABILITY CONSULTANT (Electronic signature on file) Final Signed Out: 08/22/1999 12:16 [facility] CONVERTED FINAL DIAGNOSIS SPECIMEN ADEQUACY SATISFACTORY FOR EVALUATION GENERAL CATEGORIZATION BENIGN CELLULAR CHANGES DESCRIPTIVE DIAGNOSIS MARKED ACUTE INFLAMMATION. HORMONAL EVALUATION HORMONAL PATTERN COMPATIBLE WITH AGE AND HISTORY [facility] CONVERTED ORDERING PROVIDER Ordering Provider: CHEY CARRERA [facility] CONVERTED PAP DISCLAIMER The Pap test serves as a screening tool for early detection of cervical cancer. The Pap test does not represent a final diagnostic test for cervical cancer. Furthermore, the Pap test was not designed to screen for other malignancies (endometrial, ovarian cancer, etc....). False negatives and false positives have occurred. If clinically indicated, further patient evaluation is recommended. [facility] Vital Signs Date Time Vital Sign Value Performing Clinician Facility 03-24-2024 09:35-0400 Body height 168.91 cm [facility] 03-24-2024 09:35-0400 Body mass index (BMI) [Ratio] 27.6 kg/m2 [facility] 03-24-2024 09:35-0400 Body weight 78.92 kg [facility] 03-24-2024 09:35-0400 Diastolic blood pressure 72 mm[Hg] [facility] 03-24-2024 09:35-0400 Heart rate 76 /min [facility] 03-24-2024 09:35-0400 Systolic blood pressure 115 mm[Hg] [facility] 09-24-2023 11:00-0500 Body height 168.91 cm Nathalie Escobar Other [employer] Other 09-24-2023 11:00-0500 Body mass index (BMI) [Ratio] 27.47 kg/m2 Nathalie Escobar Other [employer] Other 09-24-2023 11:00-0500 Body temperature 98 [degF] Nathalie Escobar Other [employer] Other 09-24-2023 11:00-0500 Body weight 78.38 kg Nathalie Escboar Other [employer] Other 09-24-2023 11:00-0500 Diastolic blood pressure 62 mm[Hg] Nathalie Escobar Other [employer] Other 09-24-2023 11:00-0500 Respiratory rate 18 /min Nathalie Escobar Other [employer] Other 09-24-2023 11:00-0500 SaO2% (BldA) [Mass fraction] 98 % Nathalie Escobar Other [employer] Other 09-24-2023 11:00-0500 Systolic blood pressure 102 mm[Hg] Nathalie Escobar Other [employer] Other 12-02-2022 11:25-0500 Body height 168.91 cm Anabel Long Other [employer] Other 12-02-2022 11:25-0500 Body mass index (BMI) [Ratio] 27.34 kg/m2 Anabel Long Other [employer] Other 12-02-2022 11:25-0500 Body temperature 98.1 [degF] Anabel Long Other [employer] Other 12-02-2022 11:25-0500 Body weight 78.02 kg Anabel Long Other [employer] Other 12-02-2022 11:25-0500 Respiratory rate 18 /min Anabel Long Other [employer] Other 12-02-2022 11:25-0500 SaO2% (BldA) [Mass fraction] 97 % Anabel Long Other [employer] Other 11-28-2022 11:55-0500 Body height 168.91 cm Blanka Harperault Other [employer] Other 11-28-2022 11:55-0500 Body mass index (BMI) [Ratio] 27.34 kg/m2 Blanka Britt Other [employer] Other 11-28-2022 11:55-0500 Body temperature 97.6 [degF] Blanka Britt Other [employer] Other 11-28-2022 11:55-0500 Body weight 78.02 kg Blanka Britt Other [employer] Other 11-28-2022 11:55-0500 Respiratory rate 18 /min Blanka Britt Other [employer] Other 11-28-2022 11:55-0500 SaO2% (BldA) [Mass fraction] 95 % Blanka Britt Other [employer] Other Encounters Encounter Date Encounter Type Care Provider Facility Start: 05-01-2024 ambulatory SAUNDRA HER [facility] Start: 04-27-2024 End: 04-27-2024 ambulatory AMERICA Acevedo [facility] Start: 04-27-2024 End: [facility]: 04-10-2024 End: 04-10-2024 ambulatory [facility] Start: 04-10-2024 Encounter for gynecological examination (general) (routine) without abnormal findings [facility] Start: 03-24-2024 Patient encounter status [facility] Start: 03-24-2024 End: 03-24-2024 ambulatory [facility] Work Phone: Start: 03-24-2024 End: 03-24-2024 Encounter for general adult medical examination without abnormal findings [facility] Start: 03-24-2024 End: 03-24-2024 Patient encounter procedure [facility] Work Phone: Start: 09-24-2023 End: 09-24-2023 ambulatory Nathalie Escobar Other [employer] Other Start: 09-24-2023 Office outpatient vi sit 15 minutes Nathalie Escobar [facility] Start: 12-02-2022 End: 12-02-2022 ambulatory Anabel Long Other [employer] Other Start: 12-02-2022 Office outpatient vi sit 15 minutes Anabel Long [facility] Start: 11-29-2022 End: 11-29-2022 ambulatory Saundra Her Other [employer] Other Start: 11-29-2022 Telephone encounter Saundra Her [facility] Start: 11-28-2022 End: 11-28-2022 ambulatory Blanka De La Torre Other [employer] Other Start: 11-28-2022 Office outpatient ne w 30 minutes Blanka De La Torre [facility] Start: 11-22-2022 End: 11-23-[address] SAUNDRA HER Facility:[facility] Start: 04-09-2022 End: 04-10-[address] DOCTOR HAWKINS Facility:[facility] Start: 03-21-2022 End: 03-22-[address] DOCTOR HAWKINS Facility:[facility] Start: 08-14-1999 End: 08-14-1999 Patient encounter procedure Conversion Sailaja Shaikh [facility] Start: 08-14-1999 Results Only Conversion Sailaja Shaikh [facility] Procedures Date Procedure Procedure Detail Performing Clinician Start: 08-14-1999 CONVERTED CYTOLOGY BURR GRINDER Conversion Sailaja Shaikh Plan of Treatment Date Care Activity Detail Author [facility] Payers Date Payer Category Payer Unknown [id number] 2.16.84 [id number] 1970 Unknown [id number] 2.16.84 [id number] 1970 Unknown [id number] 2.16.84 [id number] 1970 Unknown [id number] 2.16.8 [id number] 1970 Unknown [id number] 2.16.8 [id number] 1970 Unknown [id number] 2.16.8 [id number] 1970 Unknown [id number] 2.16.8 [id number] 1961 Unknown [id number] Social History Date Type Detail Facility Tobacco smoking status IDIS Unknown if ever smoked [facility] Sex Assigned At Not on file [facility] Sex Assigned At Sex Assigned At Bir [employer] Other Start: 09-24-2023 Tobacco smoking status NHIS Never smoked tobacco (finding) [facility] Start: 1970 Sex Assigned At Female F [facility] Evaluation note 09-24-2023 Note Date & Type [...] understanding and is agreeable to treatment plan. [employer] Other Evaluation note 12-02-2022 Note Date & [...] no improvement in 2 to 3 days. [employer] Other Evaluation note 11-28-2022 Note Date & [...] therapy plan may need to be made. [employer] Other Evaluation note Note Date & Type Note Facility Evaluation note No Information [employer] [facility] [employer] Other Evaluation note Note Date & Type Note Facility Evaluation note Diagnosis Onset Date Hypothyroid acute Screening for colon cancer a cute Wellness examination acute [facility] Work Phone: History general Narrative - Reported Note Date & Type Note Facility History general Narrative - Reported Type Medical History Pike's esophagus Medical History Hypothyroidism Medical History Tanesha-menopausal Medical History Polycystic ovarian syndrome Medical History Kidney stones Surgical History tonsillectomy Hospitalization History see above surgical histo ry [employer] Other History general Narrative - Reported Note Date & Type Note Facility History general Narrative - Reported Type Medical History Pike's esophagus Medical History Hypothyroidism Medical History Tanesha-menopausal Medical History Polycystic ovarian syndrome Medical History Kidney stones Surgical History tonsillectomy Surgical History D&C 04/2023 Hospitalization History see above surgical histo [email or web address] Other Hospital Discharge instructions Note Date & Type Note Facility Hospital Discharge instructions Ambulatory OrdersAMB Cologuard Time Frame: 03/24/24, Location: Determined By Patient [facility] Work Phone: Summary Purpose Family History [...] or prosecute any alcohol or drug abuse patient.[facility] INFORMATION SOURCE (unrecogn ized section and content) DATE CREATED AUTHOR 11/27/2022 [facility] DATE CREATED AUTHOR AUTHOR'S ORGANIZ ATION 04/29/2024 [facility] DATE CREATED AUTHOR AUTHOR'S ORGANIZ ATION 05/03/2024 [facility] DATE CREATED AUTHOR AUTHOR'S ORGANIZ ATION 05/04/2024 [facility] REASON FOR VISIT (unrecogniz ed section and [...] BE BASED ON THE PRIMARY CLINICAL RECORDS. [facility] [employer] provides no warranty or guarantee of the accuracy or completeness of information in this document.
[2024-07-02 17:24] LABS: Free T4 1.26 ng/dL (0.76-1.46)
[2024-07-02 17:26] LABS: Thyroid Stimulating Hormone 1.488 uIU/mL (0.358-3.740)
== END 2024-07-02 15:46 | disposition home or self-care (01) ==
LOC: LAB 15:45
PROVIDERS: PCP Family Medicine; Visit Provider Family Medicine
DX: E03.9 Hypothyroidism, unspecified (principal)
CPT/HCPCS: 36415; 84439; 84443

== ENCOUNTER 2024-12-01 16:23 | Outpatient (OUT) | payer OTHER, SELFPAY ==
--- NOTE | 2024-12-01 | MM_ITS ---
Patient Name: BERTHA BACH MR#: [id number] : 1970 Exam Date: 12/01/2024 Ordering Doctor: America Vaz RADIOLOGY REPORT PROCEDURE: MM TOMOSYNTHESIS SCREENING BI COMPARISON: MM TOMOSYNTHESIS SCREENING BI, 11/28/2023. MG MAMM SCREEN 3D CARLA CAD, 11/22/2022. MG MAMM SCREEN 3D CARLA CAD, 11/21/2021. MG MAMM SCREEN CARLA W CAD, 03/25/2018. INDICATIONS: Screening Calculator Name NCI Breast Cancer Risk Assessment Tool 5 Year Breast Cancer Risk 1.60% Lifetime Breast Cancer Risk 10.00% Personal Breast Cancer No Personal Ovarian Cancer No Treatments None Family Cancers Brother with blood cancer at age 45; Mother with conner cell cancer at age ~45. LOCATION: [facility] BREAST COMPOSITION: The breasts are heterogeneously dense,which may obscure small masses. FINDINGS: DIAGNOSTIC CATEGORY 1--NEGATIVE. LEFT BREAST: No significant suspicious finding. RIGHT BREAST: No significant suspicious finding. RECOMMENDATIONS: ROUTINE MAMMOGRAM AND CLINICAL EVALUATION IN 12 MONTHS. PLEASE NOTE: A NORMAL MAMMOGRAM DOES NOT EXCLUDE THE POSSIBILITY OF BREAST CANCER. A CLINICALLY SUSPICIOUS PALPABLE LUMP SHOULD BE BIOPSIED. Dictated by: Martin Morrison DO on 12/01/2024 at 16:58 Approved by: Martin Morrison DO on 12/01/2024 at 17:03
== END 2024-12-01 16:24 | disposition home or self-care (01) ==
LOC: MAMMO 16:23
PROVIDERS: PCP Family Medicine; Visit Provider Nurse Practitioner Family
DX: Z12.31 Encounter for screening mammogram for malignant neoplasm of breast (principal); Z80.8 Family history of malignant neoplasm of other organs or systems
CPT/HCPCS: 77063; 77067

== ENCOUNTER 2025-06-28 15:29 | Outpatient (OUT) | payer OTHER, SELFPAY ==
--- OUTSIDE RECORDS SUMMARY | 2025-04-13 09:57 | XMS_ITS ---
Author Organization [facility] Care Team Providers Care Blue Leather Setter Name Role Phone DOUG CROWE Attending Unavailable LOVE RASCON Attending Unavailable SEAMUS HER Referring Unavailable SEAMUS HER Primary Care Unavailable Purpose PROBLEMS DATE TYPE CONDITION / CODE ATTENDING STATUS [facility] 04/13/2025 Unknown Encounter for gynecological examination (general) (routine) without abnormal findings / Z01.419(ICD-10) LOVE RASCON [facility] 04/13/2025 Unknown Encounter for sc reening mammogram for malignant neoplasm of breast / Z12.31(ICD-10) LOVE RASCON [facility] 04/13/2025 Unknown Cystocele, midli ne / N81.11(ICD-10) LOVE RASCON [facility] 04/13/2025 Unknown Rectocele / N81.6(ICD-10) ROSIELOVE KIM [facility] PROCEDURES No Procedure Records Found VITAL SIGNS No Vital Signs Records Found RESULTS No Result Records Found ALLERGIES DATE TYPE / CODE NAME / CODE REACTION SEVERITY SOURCE Drug Class/[id number](SNO MED CT) NO KNOWN ALLERGIES [facility] ENCOUNTERS ADMIT/DISCHARGE ACCOUNT NUMBER ADMITTING ENCOUNTER CLASS LOCATION SOURCE 04/13/2025/04/13/20 [id number] Ambulatory Buildin 07 [facility] 01/01/2025/01/02/20 [id number] Ambulatory Building:[facility] S [facility] EPIC FUNCTIONAL STATUS No Functional Status Records Found EQUIPMENT No Equipment Records Found PAYERS ENCOUNTER GUARANTOR PAYER SUBSCRIBER SOURCE 04/13/2025 BERTHA JEFFRIESELDOB: [place], [place] [address]Ang: (HP) Primary Insurance:[facility] SUPERMEDPolicy Number: [id number] Date:2014-09-30 BERTHA JEFFRIESELDOB: [id number] [place], [place] [address]Kdq: () [facility] 2025 BERTHA JEFFRIESCHONOB: [place] [address]Tuu: () Primary Insurance:[employer] M[employer]UALPolicy Number: [id number] Date:2023-03-30 BERTHA JEFFRIESCHONOB: [id number] [place] [address] [facility] EPIC SOCIAL HISTORY No Social History Records Found FAMILY HISTORY No Family History Records Found ADVANCE DIRECTIVES No Advanced Directives Records Found INFORMATION SOURCE DATE CREATED AUTHOR AUTHOR'S REYES ATION 06/28/2025 [place]
[2025-06-28 16:32] LABS: Thyroid Stimulating Hormone 1.860 uIU/mL (0.358-3.740)
== END 2025-06-28 15:30 | disposition home or self-care (01) ==
LOC: LAB 15:30
PROVIDERS: PCP Family Medicine; Visit Provider Family Medicine
DX: E03.9 Hypothyroidism, unspecified (principal)
CPT/HCPCS: 36415; 84439; 84443